=== PATIENT | male | born 1985 | race Caucasian/White ===

== ENCOUNTER 2017-12-19 14:43 | Emergency (ER) | payer MEDICAID ==
[~2017-12-19] VITALS: Ht 180.3 cm; Wt 65.9 kg
[2017-12-19] MEDS ORDERED: chlordiazePOXIDE 25mg capsule PO ONE (15:55)
[2017-12-19] MEDS ORDERED: oxymetazoline 15 ML nasal spray NS ONE (15:55)
[2017-12-19 18:14] VITALS: BP 134/92
== END 2017-12-19 18:15 | disposition home or self-care (01) ==
LOC: ER 14:44
DX: R04.0 Epistaxis (principal); I10 Essential (primary) hypertension; F17.200 Nicotine dependence, unspecified, uncomplicated; F12.10 Cannabis abuse, uncomplicated
CPT/HCPCS: 93005; 99283; 99284

== ENCOUNTER 2020-03-21 19:14 | Emergency (ER) | payer MEDICAID ==
[~2020-03-21] VITALS: Ht 177.8 cm; Wt 79.5 kg
[2020-03-21 19:55] LABS: BASOPHILS % (AUTO) 0.2 % (0-1); EOSINOPHILS % (AUTO) 0.1 % (0-6); HEMATOCRIT 44.1 % (42.0-52.0); HEMOGLOBIN 15.3 g/dl (14.0-17.9); LYMPHOCYTES # (AUTO) 0.6 X10'3 (1.1-4.8); LYMPHOCYTES % (AUTO) 5.5 % (21-51); MEAN CORPUSCULAR HEMOGLOBIN 34.3 PG (27.0-31.0); MEAN CORPUSCULAR HGB CONC 34.6 g/dL (33.0-36.5); MEAN CORPUSCULAR VOLUME 99.1 FL (78-98); MEAN PLATELET VOLUME 7.4 FL (7.4-10.4); MONOCYTES # (AUTO) 0.8 X10'3 (0-0.9); MONOCYTES % (AUTO) 7.2 % (2-12); NEUTROPHILS # (AUTO) 10.2 X10'3 (1.8-7.7); PLATELET COUNT 243 X10'3 (140-440); RED BLOOD COUNT 4.45 X10'6 (4.70-6.10); RED CELL DISTRIBUTION WIDTH 14.1 % (11.5-14.5); WHITE BLOOD COUNT 11.7 X10'3 (4.5-11.0)
[2020-03-21 20:01] LABS: CLARITY,URINE CLEAR (Clear); COLOR,URINE STRAW (Yellow); GLUCOSE, URINE NEGATIVE (Neg); KETONES,URINE 15 mg/dl (Neg); LEUKOCYTE ESTERASE ,URINE NEGATIVE (Neg); NITRITES, URINE NEGATIVE (Neg); OCCULT BLOOD,URINE TRACE-INTACT (Neg); PH,URINE 6.5 (4.8-8.0); PROTEIN,URINE NEGATIVE (Neg); UROBILINOGEN,URINE 0.2 E.U/dL (0.2-1.0)
[2020-03-21 20:02] LABS: UA COLLECTION TYPE URINAL
[2020-03-21 20:03] LABS: ALANINE AMINOTRANSFERASE 56 U/L (12-78); ALKALINE PHOSPHATASE 80 IU/L (46-116); ANION GAP 13 (8-16); ASPARTATE AMINO TRANSFERASE 47 U/L (10-37); BLOOD UREA NITROGEN 4 MG/DL (7-18); BUN/CREATININE RATIO 5.3 (5.4-32.0); CALCIUM 9.6 MG/DL (8.5-10.1); CHLORIDE 96 MMOL/L (99-107); CREATININE 0.76 MG/DL (0.60-1.10); GLUCOSE 107 MG/DL (70-104); LIPASE 918 U/L (73-393); POTASSIUM 3.7 MMOL/L (3.5-5.1); SODIUM 134 MMOL/L (135-145); TOTAL CARBON DIOXIDE 24.6 MMOL/L (24-32); TOTAL PROTEIN 8.1 G/DL (6.4-8.2); eGFR > 90 ML/MIN
[2020-03-21 20:10] LABS: BACTERIA,URINE NONE SEEN /HPF (Neg); RBC,URINE 0-2 /HPF (0-2); WBC,URINE NONE SEEN /HPF (0-4)
[2020-03-21 20:11] LABS: MUCUS STRANDS NONE SEEN /LPF (Neg); SQUAMOUS EPITHELIAL CELL,UR FEW /LPF (FEW)
[2020-03-21] MEDS ORDERED: morphine 4 MG/ML inj SYRINge IV ONE (20:15)
[2020-03-21] MEDS ORDERED: ondansetron/PF 4mg/2ml inj IV ONE (20:15)
[2020-03-21] MEDS ORDERED: normal saline 1000ML IV soln IVB ONE ×2 (20:15→20:55)
[2020-03-21] MEDS ORDERED: acetaminophen 325mg tablet PO ONE (20:45)
[2020-03-21 22:29] LABS: PARTIAL THROMBOPLASTIN TIME 31 SECONDS (22-32)
[2020-03-21 22:57] LABS: URINE AMPHETAMINE SCREEN NEGATIVE (Neg); URINE BARBITUATE SCREEN NEGATIVE (Neg); URINE BENZODIAZEPINES SCREEN NEGATIVE (Neg); URINE CANNABINOID SCREEN NEGATIVE (Neg); URINE COCAINE SCREEN NEGATIVE (Neg); URINE METHADONE SCREEN NEGATIVE (Neg); URINE OPIATE SCREEN NEGATIVE (Neg); URINE PHENCYCLIDINE SCREEN NEGATIVE (Neg)
[2020-03-22] MEDS ORDERED: morphine 10mg/ml inj. IV ONE (00:15)
[2020-03-22 01:04] VITALS: BP 178/107
[2020-03-22] MEDS ORDERED: piperacillin/tazo 3.375gm/50ml 50 ML IV ONE (01:10)
[2020-03-22] MEDS ORDERED: normal saline 1000ml 1,000 ML IV SCH (01:19)
[2020-03-22] MEDS ORDERED: LORazepam 2 mg/ml vial IV PRN (01:20)
[2020-03-22] MEDS ORDERED: magnesium Cl slow-release 64mg tablet PO PRN (01:20)
[2020-03-22] MEDS ORDERED: ondansetron/PF 4mg/2ml inj IV PRN (01:20)
[2020-03-22] MEDS ORDERED: potassium Cl 20 mEq SR tablet PO PRN ×2 (01:20)
[2020-03-22] MEDS ORDERED: morphine 2 MG/ML inj. syringe IV PRN (01:20)
[2020-03-22] MEDS ORDERED: potassium CL 10mEq/100ml bag 100 ML IV PRN ×2 (01:20)
[2020-03-22] MEDS ORDERED: acetaminophen 325mg tablet PO PRN (01:20)
[2020-03-22] MEDS ORDERED: magnesium hydroxide 30ml (MOM) UD suspension PO PRN (01:20)
[2020-03-22] MEDS ORDERED: haloperidol 5mg tablet PO PRN (01:20)
[2020-03-22] MEDS ORDERED: haloperidol lactate 5mg/ml inj IM PRN (01:20)
[2020-03-22] MEDS ORDERED: mag hydrox/Alum hydrox/simeth 30ml oral suspension PO PRN (01:20)
[2020-03-22] MEDS ORDERED: magnesium 4gm in 100ml NS 100 ML IV PRN (01:20)
[2020-03-22] MEDS ORDERED: magnesium 2GM in 50ml NS 50 ML IV PRN (01:20)
[2020-03-22] MEDS ORDERED: thiamine inj. 100 MG in normal saline 100ml IV soln 100 ML IV ONE (01:20)
[2020-03-22] MEDS ORDERED: ONDA4TAB6 PO (01:32)
[2020-03-22] MEDS ORDERED: PANT-47 PO (01:32)
[2020-03-22] MEDS ORDERED: THIA100T66 PO (01:32)
[2020-03-22] MEDS ORDERED: folic acid inj. 2 MG, thiamine inj. 100 MG, MVI, adult No.4 with vit. K 10 ML in dextro... IV SCH ×4 (02:00)
[2020-03-22] MEDS ORDERED: multivitamins, therapeutics tablet PO SCH (08:00)
[2020-03-22] MEDS ORDERED: K and/or MAG REPLACEMENT MC SCH (08:00)
[2020-03-22] MEDS ORDERED: thiamine 100mg tablet PO SCH (08:00)
[2020-03-22] MEDS ORDERED: folic acid 1mg tablet PO SCH (08:00)
[2020-03-24] MEDS ORDERED: LORazepam 1 MG tablet PO PRN (01:20)
[2020-03-24] MEDS ORDERED: LORazepam 2 mg/ml vial IV PRN (01:20)
== END 2020-03-22 01:47 | disposition left against medical advice (07) ==
LOC: ER 19:14 → ED HOLD 03-22 01:29 → UNDOADMIN 03-22 01:29 → UNDODISIN 03-22 01:40
DX: K85.20 Alcohol induced acute pancreatitis without necrosis or infection (principal); I10 Essential (primary) hypertension; F17.200 Nicotine dependence, unspecified, uncomplicated; F12.90 Cannabis use, unspecified, uncomplicated; R11.0 Nausea; R50.9 Fever, unspecified; Z79.899 Other long term (current) drug therapy
CPT/HCPCS: 36415; 74176; 76700; 80053; 80305; 80320; 81001; 82607; 83605; 83690; 84145; 85025; 85610; 85730; 87040; 96374; 96375; 96376; 99285; J2270; J2405; J7030; 96372

== ENCOUNTER 2020-06-30 21:31 | Emergency (ER) | payer MEDICAID ==
[~2020-06-30] VITALS: Ht 177.8 cm; Wt 81.8 kg
[~2020-06-30 21:31] MED LIST: ONDA4TAB6 PO; PANT-47 PO; THIA100T66 PO
[2020-06-30 22:04] VITALS: BP 138/100
[2020-06-30 22:10] LABS: GLUCOSE, URINE NEGATIVE (Neg); KETONES,URINE NEGATIVE (Neg); LEUKOCYTE ESTERASE ,URINE LARGE (Neg); NITRITES, URINE NEGATIVE (Neg); OCCULT BLOOD,URINE LARGE (Neg); PH,URINE 6.5 (4.8-8.0); PROTEIN,URINE NEGATIVE (Neg); UROBILINOGEN,URINE 0.2 E.U/dL (0.2-1.0)
[2020-06-30 22:12] LABS: COLOR,URINE STRAW (Yellow); UA COLLECTION TYPE CLN CATCH MIDSTREAM
[2020-06-30 22:13] LABS: CLARITY,URINE SLIGHTLY CLOUDY (Clear)
[2020-06-30 22:18] LABS: SQUAMOUS EPITHELIAL CELL,UR FEW /LPF (FEW); WBC,URINE TNTC /HPF (0-4)
[2020-06-30 22:19] LABS: BACTERIA,URINE 3+ /HPF (Neg); RENAL CELLS, URINE FEW /HPF
[2020-06-30 22:20] LABS: WBC CLUMPS,URINE MODERATE /HPF (NEGATIVE)
--- NOTE | 2020-06-30 22:23 | NUR ---
HE WALKED OUT
== END 2020-06-30 22:24 | disposition left against medical advice (07) ==
LOC: ER 21:32
DX: R31.9 Hematuria, unspecified (principal); Z53.21 Procedure and treatment not carried out due to patient leaving prior to being seen by health care provider
CPT/HCPCS: 81001; 87088

== ENCOUNTER 2020-07-07 13:59 | Emergency (ER) | payer MEDICAID ==
[~2020-07-07] VITALS: Ht 177.8 cm; Wt 77.3 kg
[2020-07-07 14:28] VITALS: BP 153/90
[2020-07-07] MEDS ORDERED: CefTRIAXone 250MG IM Kit w/LIDOcaine IM ONE (15:00)
[2020-07-07] MEDS ORDERED: azithromycin 250mg tablet PO ONE (15:00)
== END 2020-07-07 15:33 | disposition home or self-care (01) ==
LOC: ER 14:00
DX: A54.9 Gonococcal infection, unspecified (principal); I10 Essential (primary) hypertension; F12.90 Cannabis use, unspecified, uncomplicated; Z79.899 Other long term (current) drug therapy; Z72.89 Other problems related to lifestyle
CPT/HCPCS: 96372; 99283; J0696

== ENCOUNTER 2020-11-08 13:07 | Emergency (ER) | payer MEDICAID ==
[~2020-11-08] VITALS: Ht 177.8 cm; Wt 79.2 kg
[2020-11-08 13:12] VITALS: BP 140/102
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
--- NOTE | 2020-11-08 15:19 | NUR ---
RUPESH WAS GIVEN PT CONTACT INFORMATION FOR OFFICER
== END 2020-11-08 14:46 | disposition home or self-care (01) ==
LOC: ER 13:08
DX: M25.512 Pain in left shoulder (principal); R07.89 Other chest pain; R51.9 Headache, unspecified; V09.29XA Pedestrian injured in traffic accident involving other motor vehicles, initial encounter; Y93.01 Activity, walking, marching and hiking; Y92.89 Other specified places as the place of occurrence of the external cause; Y99.8 Other external cause status
CPT/HCPCS: 70450; 71250; 72125; 73030; 74176; 99285

== ENCOUNTER 2020-12-10 17:18 | Emergency (ER) | payer MEDICAID ==
[~2020-12-10] VITALS: Ht 177.8 cm; Wt 91.0 kg
[2020-12-10 17:51] VITALS: BP 149/95
--- NOTE | 2020-12-10 18:17 | NUR ---
PATIENT CALLED BACK TO TREATMENT AREA, NOT IN LOBBY. ATTEMPTED TO CALL PATIENT TO RETURN, MAILBOX FULL AND UNABLE TO LEAVE MESSAGE.
== END 2020-12-10 18:59 | disposition left against medical advice (07) ==
LOC: ER 17:19
DX: R10.84 Generalized abdominal pain (principal); Z53.21 Procedure and treatment not carried out due to patient leaving prior to being seen by health care provider

== ENCOUNTER 2020-12-12 15:25 | Emergency (ER) | payer MEDICAID ==
[~2020-12-12] VITALS: Ht 177.8 cm; Wt 91.0 kg
[2020-12-12 15:31] VITALS: BP 152/90
[2020-12-12] MEDS ORDERED: ibuprofen tablet 400 MG TABLET PO ONE (16:15)
[2020-12-12] MEDS ORDERED: silver sulfadiazine cream 400gm jar TP SCH (16:15)
[2020-12-12] MEDS ORDERED: SULF1TAB45 PO (16:20)
[2020-12-12] MEDS ORDERED: HYDR-3965 PO (16:20)
[2020-12-12] MEDS ORDERED: ONDA4TAB6 PO (16:20)
[2020-12-12] MEDS ORDERED: CEPH250T PO (16:20)
[2020-12-12] MEDS ORDERED: silver sulfadiazine cream 50gm TP ONE (16:30)
== END 2020-12-12 16:48 | disposition home or self-care (01) ==
LOC: ER 15:26
DX: T22.112A Burn of first degree of left forearm, initial encounter (principal); L03.114 Cellulitis of left upper limb; T31.0 Burns involving less than 10% of body surface; I10 Essential (primary) hypertension; F12.90 Cannabis use, unspecified, uncomplicated; Z72.89 Other problems related to lifestyle; Z79.899 Other long term (current) drug therapy; X08.8XXA Exposure to other specified smoke, fire and flames, initial encounter; Y93.89 Activity, other specified; Y92.89 Other specified places as the place of occurrence of the external cause; Y99.8 Other external cause status
CPT/HCPCS: 16020; 99283

== ENCOUNTER 2021-01-17 18:57 | Emergency (ER) | payer MEDICAID ==
[~2021-01-17] VITALS: Ht 177.8 cm; Wt 86.4 kg
[2021-01-17] MEDS ORDERED: ketorolac trometh. 30mg/ml inj. IM ONE (21:10)
[2021-01-17 21:42] VITALS: BP 152/98
== END 2021-01-17 21:43 | disposition home or self-care (01) ==
LOC: ER 18:58
DX: M25.512 Pain in left shoulder (principal); I10 Essential (primary) hypertension; F12.90 Cannabis use, unspecified, uncomplicated; Z72.89 Other problems related to lifestyle; Z79.899 Other long term (current) drug therapy
CPT/HCPCS: 73030; 96372; 99283; J1885

== ENCOUNTER 2021-04-09 18:54 | Emergency (ER) | payer MEDICAID ==
[~2021-04-09] VITALS: Ht 177.8 cm; Wt 90.9 kg
[2021-04-09] MEDS ORDERED: clindamycin 150mg capsule PO ONE (22:25)
[2021-04-09] MEDS ORDERED: ondansetron 4mg rapidly disintigrating tab PO ONE (22:25)
[2021-04-09] MEDS ORDERED: acetaminophen 325mg tablet PO ONE (22:25)
[2021-04-09] MEDS ORDERED: ibuprofen tablet 400 MG TABLET PO ONE (22:25)
[2021-04-09 23:05] VITALS: BP 148/106
[2021-04-09] MEDS ORDERED: CLIN150C2 PO ×2 (23:07→23:09)
== END 2021-04-09 23:27 | disposition home or self-care (01) ==
LOC: ER 18:56
DX: L03.116 Cellulitis of left lower limb (principal); M79.672 Pain in left foot; I10 Essential (primary) hypertension; F12.90 Cannabis use, unspecified, uncomplicated; Z72.89 Other problems related to lifestyle; Z79.2 Long term (current) use of antibiotics; Z79.899 Other long term (current) drug therapy
CPT/HCPCS: 73630; 99284

== ENCOUNTER 2021-11-12 07:27 | Emergency (ER) | payer MEDICAID ==
[~2021-11-12] VITALS: Ht 177.8 cm; Wt 84.0 kg
[2021-11-12 07:28] VITALS: BP 157/99
[2021-11-12] MEDS ORDERED: LIDOcaine 5% patch TP ONE (07:50)
[2021-11-12] MEDS ORDERED: acetaminophen 325mg tablet PO ONE (07:50)
[2021-11-12] MEDS ORDERED: ketorolac trometh inj. 60 MG/2 ML VIAL IM ONE (07:50)
[2021-11-12] MEDS ORDERED: ondansetron 4mg rapidly disintigrating tab PO ONE (07:50)
[2021-11-12] MEDS ORDERED: HYDROcodone/acetaminophen 5mg/325mg tablet PO ONE (07:50)
[2021-11-12] MEDS ORDERED: LIDO700A32 TOP (08:32)
[2021-11-12] MEDS ORDERED: HYDR-3965 PO (08:32)
== END 2021-11-12 08:48 | disposition home or self-care (01) ==
LOC: ER 07:27
DX: R07.81 Pleurodynia (principal); I10 Essential (primary) hypertension; F12.90 Cannabis use, unspecified, uncomplicated; Z72.89 Other problems related to lifestyle; Z79.899 Other long term (current) drug therapy
CPT/HCPCS: 71045; 96372; 99284; J1885

== ENCOUNTER 2021-11-14 01:22 | Emergency (ER) | payer MEDICAID ==
[~2021-11-14] VITALS: Ht 177.8 cm; Wt 77.0 kg
[~2021-11-14 01:22] MED LIST changes: +HYDR-3965 PO; +LIDO700A32 TOP
[2021-11-14 01:38] VITALS: BP 139/83
== END 2021-11-14 04:48 | disposition left against medical advice (07) ==
LOC: ER 01:23
DX: R07.81 Pleurodynia (principal); R05.9 Cough, unspecified; Z53.21 Procedure and treatment not carried out due to patient leaving prior to being seen by health care provider

== ENCOUNTER 2022-01-26 22:14 | Emergency (ER) | payer MEDICAID ==
[~2022-01-26] VITALS: Ht 177.8 cm; Wt 86.0 kg
[~2022-01-26 22:14] MED LIST changes: -HYDR-3965 PO
[2022-01-26 22:22] VITALS: BP 153/111
== END 2022-01-27 02:17 | disposition left against medical advice (07) ==
LOC: ER 22:14
DX: Z53.21 Procedure and treatment not carried out due to patient leaving prior to being seen by health care provider (principal)
CPT/HCPCS: 99283

== ENCOUNTER 2022-05-15 18:00 | Emergency (ER) | payer MEDICAID ==
[~2022-05-15] VITALS: Ht 177.8 cm; Wt 81.8 kg
[2022-05-15] MEDS ORDERED: gabapentin 300mg capsule PO ONE (22:25)
[2022-05-15] MEDS ORDERED: GABA400C PO (22:35)
[2022-05-15 22:48] VITALS: BP 130/90
== END 2022-05-15 22:50 | disposition home or self-care (01) ==
LOC: ER 19:19
DX: F10.20 Alcohol dependence, uncomplicated (principal); Y90.9 Presence of alcohol in blood, level not specified; I10 Essential (primary) hypertension; F12.90 Cannabis use, unspecified, uncomplicated
CPT/HCPCS: 99285

== ENCOUNTER 2022-10-05 17:44 | Emergency (ER) | payer MEDICAID ==
[~2022-10-05] VITALS: Ht 177.8 cm; Wt 86.4 kg
[~2022-10-05 17:44] MED LIST changes: +GABA400C PO
[2022-10-05 17:48] VITALS: BP 159/103
[2022-10-05] MEDS ORDERED: ketorolac tromethamine 15mg/ml inj. IM ONE (21:00)
[2022-10-05] MEDS ORDERED: sulfamethoxazole/trimethoprim DS (800/160mg) tablet PO ONE (21:00)
[2022-10-05] MEDS ORDERED: IBUP-1984 PO (21:05)
[2022-10-05] MEDS ORDERED: SULF1TAB45 PO (21:05)
== END 2022-10-05 21:45 | disposition home or self-care (01) ==
LOC: ER 17:44
DX: L03.114 Cellulitis of left upper limb (principal); I10 Essential (primary) hypertension; Z79.899 Other long term (current) drug therapy
CPT/HCPCS: 73130; 96372; 99283; J1885

== ENCOUNTER 2022-11-01 20:02 | Emergency (ER) | payer MEDICAID ==
[~2022-11-01] VITALS: Ht 177.8 cm; Wt 79.5 kg
[2022-11-01 20:10] VITALS: BP 136/86
== END 2022-11-01 20:51 | disposition left against medical advice (07) ==
LOC: ER 20:04
DX: F10.239 Alcohol dependence with withdrawal, unspecified (principal); Z53.21 Procedure and treatment not carried out due to patient leaving prior to being seen by health care provider; Y90.9 Presence of alcohol in blood, level not specified

== ENCOUNTER 2024-08-30 23:18 | Inpatient (IN) | payer MEDICAID ==
[~2024-08-30] VITALS: Ht 177.8 cm; Wt 71.4 kg
[2024-08-31] MEDS ORDERED: NALT50TA5 PO (00:27)
[2024-08-31] MEDS ORDERED: THIA100T66 PO (00:27)
[2024-08-31] MEDS ORDERED: CHLO25CA10 PO (00:27)
[2024-08-31] MEDS ORDERED: ONDA-243 PO (00:27)
[2024-08-31] MEDS ORDERED: OMEP40CA21 PO (00:27)
[2024-08-31] MEDS ORDERED: QUET-1 PO (00:27)
[2024-08-31] MEDS: QUEtiapine 25mg tablet PO STA (00:33)
[2024-08-31] MEDS: chlordiazePOXIDE 25mg capsule PO ONE (00:34)
[2024-08-31] MEDS: ondansetron 4mg rapidly disintigrating tab PO ONE (00:34)
[2024-08-31] MEDS: thiamine 100mg tablet PO ONE (00:34)
[2024-08-31] MEDS: pantoprazole 40mg Tablet.DR PO STA (00:34)
[2024-08-31 00:48] LABS: BASOPHILS % (AUTO) 0.3 % (0-1); EOSINOPHILS % (AUTO) 0.1 % (0-6); HEMATOCRIT 40.6 % (42.0-52.0); HEMOGLOBIN 13.9 g/dl (14.0-17.9); LYMPHOCYTES # (AUTO) 0.9 X10'3 (1.1-4.8); LYMPHOCYTES % (AUTO) 11.6 % (21-51); MEAN CORPUSCULAR HEMOGLOBIN 31.5 PG (27.0-31.0); MEAN CORPUSCULAR HGB CONC 34.2 g/dL (33.0-36.5); MONOCYTES # (AUTO) 1.8 X10'3 (0-0.9); MONOCYTES % (AUTO) 23.3 % (2-12); NEUTROPHILS # (AUTO) 5.1 X10'3 (1.8-7.7); NEUTROPHILS % (AUTO) 64.7 % (42-75); PLATELET COUNT 155 X10'3 (140-440); RED BLOOD COUNT 4.41 X10'6 (4.70-6.10); RED CELL DISTRIBUTION WIDTH 16.4 % (11.5-14.5); WHITE BLOOD COUNT 7.9 X10'3 (4.5-11.0)
[2024-08-31 01:00] LABS: ALANINE AMINOTRANSFERASE 112 U/L (12-78); ALBUMIN/GLOBULIN RATIO 0.6 (1.1-1.5); ALKALINE PHOSPHATASE 64 IU/L (46-116); ANION GAP 11 (8-16); ASPARTATE AMINO TRANSFERASE 197 U/L (10-37); BILIRUBIN,TOTAL 0.3 MG/DL (0.1-1.0); BLOOD UREA NITROGEN 10 MG/DL (7-18); CALCIUM 8.6 MG/DL (8.5-10.1); CHLORIDE 94 MMOL/L (99-107); CREATININE 0.77 MG/DL (0.60-1.10); GLUCOSE 102 MG/DL (70-104); SODIUM 131 MMOL/L (135-145); TOTAL CARBON DIOXIDE 25.8 MMOL/L (24-32); TOTAL PROTEIN 8.4 G/DL (6.4-8.2); eCRCL 129 ML/MIN; eGFR > 90 ML/MIN
[2024-08-31 01:12] LABS: LYMPHOCYTES % (MANUAL) 14 % (21-51); MONOCYTES % (MANUAL) 11 % (2-12); NEUTROPHILS % (MANUAL) 75 % (42-75); TOTAL CELLS COUNTED 100
[2024-08-31 01:13] LABS: LARGE PLATELETS FEW; PLATELET ESTIMATE NORMAL
[2024-08-31] MEDS: LORazepam 2 mg/ml vial IV ONE ×2 (01:23→02:06)
[2024-08-31] MEDS: normal saline 1000ML IV soln IVB ONE ×2 (01:23→02:29)
[2024-08-31 01:27] LABS: BILIRUBIN,URINE NEGATIVE (Neg); CLARITY,URINE CLEAR (Clear); COLOR,URINE YELLOW (Yellow); GLUCOSE, URINE NEGATIVE (Neg); KETONES,URINE NEGATIVE (Neg); LEUKOCYTE ESTERASE ,URINE NEGATIVE (Neg); NITRITES, URINE NEGATIVE (Neg); OCCULT BLOOD,URINE MODERATE (Neg); PH,URINE 6.5 (4.8-8.0); PROTEIN,URINE >=300 mg/dl (Neg)
[2024-08-31 01:32] LABS: UA COLLECTION TYPE CLN CATCH MIDSTREAM
[2024-08-31 01:33] LABS: BACTERIA,URINE FEW /HPF (Neg); MUCUS STRANDS FEW /LPF (Neg); SQUAMOUS EPITHELIAL CELL,UR FEW /LPF (FEW); TRANSITIONAL EPI CELLS,URINE FEW /HPF
[2024-08-31 01:34] LABS: WBC,URINE 0-4 /HPF (0-4)
[2024-08-31 01:36] LABS: URINE AMPHETAMINE SCREEN NEGATIVE (Neg); URINE BARBITUATE SCREEN NEGATIVE (Neg); URINE BENZODIAZEPINES SCREEN NEGATIVE (Neg); URINE CANNABINOID SCREEN NEGATIVE (Neg); URINE COCAINE SCREEN NEGATIVE (Neg); URINE METHADONE SCREEN NEGATIVE (Neg); URINE OPIATE SCREEN NEGATIVE (Neg); URINE PHENCYCLIDINE SCREEN NEGATIVE (Neg)
[2024-08-31] MEDS: magnesium sulf-water 2g/50mL 50 ML IV ONE (01:43)
[2024-08-31 01:48] LABS: PRO BRAIN NATRIURETIC PEPTIDE 563 PG/ML (0-125)
[2024-08-31 01:54] LABS: MAGNESIUM 1.5 MG/DL (1.5-2.4)
[2024-08-31 02:27] LABS: CREATINE KINASE 151 U/L (39-308)
[2024-08-31] MEDS: potassium CL 10mEq/100ml bag 100 ML IV SCH (02:29)
[2024-08-31] MEDS: PHENOBARBITAL IV ONE (02:45)
[2024-08-31] MEDS: NORMAL SALINE IV ONE (02:45)
[2024-08-31] MEDS ORDERED: magnesium Cl slow-release 64mg tablet PO PRN (03:25)
[2024-08-31] MEDS ORDERED: ondansetron/PF 4mg/2ml inj IV PRN (03:25)
[2024-08-31] MEDS ORDERED: magnesium hydroxide 30ml (MOM) UD suspension PO PRN (03:25)
[2024-08-31] MEDS ORDERED: mag hydrox/Alum hydrox/simeth 30ml oral suspension PO PRN (03:25)
[2024-08-31] MEDS ORDERED: haloperidol lactate 5mg/ml inj IM PRN (03:30)
[2024-08-31] MEDS: CefTRIAXone 2gm/D5W 50ml BAG 50 ML IV ONE (03:49)
[2024-08-31] MEDS: normal saline 1000ml 1,000 ML IV SCH (03:54)
[2024-08-31 03:56] LABS: APTT 30 SECONDS (22-32); PROTHROMBIN TIME 10.5 SECONDS (9.0-12.0)
[2024-08-31] MEDS: azithromycin/NS 500mg/250ml 250 ML IV STA (03:57)
[2024-08-31 04:05] LABS: HEMOGLOBIN A1C 5.4 % (4.5-6.2)
[2024-08-31] MEDS ORDERED: dextrose 50%-water 50ml dispensing syringe IV PRN ×2 (04:15)
[2024-08-31] MEDS ORDERED: glucagon, human recombinant 1mg kit SUBCUT PRN (04:15)
[2024-08-31] MEDS ORDERED: DEXTROSE 15 GM of carb/4 tabs (each vial/BOTTLE has 4 tablets) PO PRN ×2 (04:15)
[2024-08-31 04:19] LABS: ETHANOL 193 MG/DL (<10); THYROID STIMULATING HORMONE 0.93 ulU/ml (0.34-4.50)
[2024-08-31] MEDS: LORazepam 2 mg/ml vial IV PRN ×2 (05:47→07:49)
[2024-08-31] MEDS: folic acid 1mg/0.2ml inj IV SCH (07:29)
[2024-08-31] MEDS: thiamine 100mg/ml 2ml inj. IV SCH (07:29)
[2024-08-31] MEDS: pantoprazole 40 MG vial IV SCH (07:29)
[2024-08-31] MEDS: acetaminophen 325mg tablet PO PRN (07:29)
[2024-08-31] MEDS: multivitamins, therapeutics tablet PO SCH (07:29)
[2024-08-31] MEDS: docusate sod 100mg capsule PO SCH (07:30)
[2024-08-31] MEDS: enoxaparin 40mg/0.4ml syringe SUBCUT SCH (07:41)
[2024-08-31] MEDS: piperacillin/tazo 3.375gm/50ml 50 ML IV SCH (07:52)
[2024-08-31] MEDS: normal saline 1000ml 1,000 ML IV ONE ×2 (07:52→16:14)
[2024-08-31] MEDS: K and/or MAG REPLACEMENT MC SCH (08:00)
[2024-08-31 08:45] LABS: ABG BASE EXCESS -2.9 mmol/L (-2.0-3.0); ABG HCO3 20.8 mmol/L (21.0-28.0); ABG OXYGEN SATURATION 95.5 % (94.0-98.0); ABG PCO2 (T) 35.4 mmHg (35.0-48.0); ABG PH (T) 7.393 (7.350-7.450); ABG PO2 (T) 91.2 mmHg (83.0-108.0); ALLEN'S TEST Modified; FCOHb 0.9 % (0.5-1.5); FHHb 4.4 % (0.0-5.0); FLOW 2 L/min; FMetHb 0.3 % (0.0-1.5); FO2Hb 94.4 % (94.0-98.0); MODE NASAL CANNULA; PATIENT TEMPERATURE 38.6; TOTAL HEMOGLOBIN 12.7 G/dl (13.5-17.5)
[2024-08-31] MEDS ORDERED: iohexol 300mg/ml 100ml inj. ONE (08:47)
[2024-08-31] MEDS: VANCOMYCIN 1GM 200ML H20 (PEG) 200 ML IV SCH (09:23)
[2024-08-31 10:05] LABS: BASOPHILS % (AUTO) 0.3 % (0-1); EOSINOPHILS % (AUTO) 0 % (0-6); HEMATOCRIT 33.7 % (42.0-52.0); HEMOGLOBIN 11.5 g/dl (14.0-17.9); LYMPHOCYTES # (AUTO) 0.5 X10'3 (1.1-4.8); LYMPHOCYTES % (AUTO) 9.4 % (21-51); MEAN CORPUSCULAR HEMOGLOBIN 31.6 PG (27.0-31.0); MEAN CORPUSCULAR HGB CONC 34.2 g/dL (33.0-36.5); MEAN CORPUSCULAR VOLUME 92.6 FL (78-98); MEAN PLATELET VOLUME 7.7 FL (7.4-10.4); MONOCYTES % (AUTO) 17.6 % (2-12); NEUTROPHILS # (AUTO) 4.3 X10'3 (1.8-7.7); NEUTROPHILS % (AUTO) 72.7 % (42-75); PLATELET COUNT 129 X10'3 (140-440); RED BLOOD COUNT 3.64 X10'6 (4.70-6.10); RED CELL DISTRIBUTION WIDTH 16.5 % (11.5-14.5); WHITE BLOOD COUNT 5.9 X10'3 (4.5-11.0)
[2024-08-31 10:15] LABS: ALANINE AMINOTRANSFERASE 77 U/L (12-78); ALBUMIN 2.2 G/DL (3.4-5.0); ALBUMIN/GLOBULIN RATIO 0.5 (1.1-1.5); ALKALINE PHOSPHATASE 44 IU/L (46-116); ANION GAP 12 (8-16); ASPARTATE AMINO TRANSFERASE 118 U/L (10-37); BILIRUBIN,TOTAL 0.3 MG/DL (0.1-1.0); BLOOD UREA NITROGEN 6 MG/DL (7-18); CALCIUM 7.3 MG/DL (8.5-10.1); CHLORIDE 102 MMOL/L (99-107); GLUCOSE 103 MG/DL (70-104); SODIUM 135 MMOL/L (135-145); TOTAL CARBON DIOXIDE 21.4 MMOL/L (24-32); TOTAL PROTEIN 6.5 G/DL (6.4-8.2); eCRCL 165 ML/MIN; eGFR > 90 ML/MIN
[2024-08-31 10:20] LABS: POTASSIUM 2.5 MMOL/L (3.5-5.1)
[2024-08-31] MEDS: potassium Cl 40MEQ/1/2NS 520ml 520 ML IV PRN (10:30)
[2024-08-31] MEDS: metoprolol tartrate 1mg/ml inj IV SCH (15:50)
[2024-08-31] MEDS: lactulose 20gm/30ml cup PO SCH (16:19)
[2024-08-31] MEDS: nicotine 21mg patch - 24 hr TD ONE (21:18)
[2024-09-01] VITALS (8 sets, daily range): BP systolic 138–157; BP diastolic 72–101; PULSE 70–79; RESP 12–28; TEMP 97.2–98.9; O2SAT 95–97
[2024-09-01] MEDS: metoprolol tartrate 1mg/ml inj IV ONE (05:03)
[2024-09-01] MEDS: VANCOMYCIN LEVEL IV ONE (07:30)
[2024-09-01 08:35] LABS: BASOPHILS % (AUTO) 0.8 % (0-1); EOSINOPHILS % (AUTO) 0.5 % (0-6); HEMATOCRIT 36.3 % (42.0-52.0); LYMPHOCYTES # (AUTO) 0.9 X10'3 (1.1-4.8); LYMPHOCYTES % (AUTO) 21.4 % (21-51); MEAN CORPUSCULAR HEMOGLOBIN 30.8 PG (27.0-31.0); MEAN CORPUSCULAR VOLUME 93.4 FL (78-98); MEAN PLATELET VOLUME 7.9 FL (7.4-10.4); MONOCYTES # (AUTO) 1.1 X10'3 (0-0.9); MONOCYTES % (AUTO) 25.8 % (2-12); NEUTROPHILS # (AUTO) 2.3 X10'3 (1.8-7.7); NEUTROPHILS % (AUTO) 51.5 % (42-75); PLATELET COUNT 147 X10'3 (140-440); RED BLOOD COUNT 3.89 X10'6 (4.70-6.10); RED CELL DISTRIBUTION WIDTH 16.8 % (11.5-14.5); WHITE BLOOD COUNT 4.4 X10'3 (4.5-11.0)
[2024-09-01 08:44] LABS: INR 1.1 INR; PROTHROMBIN TIME 11.4 SECONDS (9.0-12.0)
[2024-09-01 08:53] LABS: ALANINE AMINOTRANSFERASE 63 U/L (12-78); ALBUMIN 2.3 G/DL (3.4-5.0); ALBUMIN/GLOBULIN RATIO 0.5 (1.1-1.5); ALKALINE PHOSPHATASE 41 IU/L (46-116); AMYLASE 79 U/L (25-115); ANION GAP 12 (8-16); ASPARTATE AMINO TRANSFERASE 78 U/L (10-37); BILIRUBIN,TOTAL 0.3 MG/DL (0.1-1.0); BLOOD UREA NITROGEN 6 MG/DL (7-18); BUN/CREATININE RATIO 10.9 (10.0-20.0); C-REACTIVE PROTEIN 6.83 MG/DL (0.0-0.5); CHLORIDE 100 MMOL/L (99-107); CHOL/HDL RATIO 3.5 (0.00-4.99); CHOLESTEROL 84 MG/DL (0-200); CREATININE 0.55 MG/DL (0.60-1.10); GLUCOSE 77 MG/DL (70-104); HDL CHOLESTEROL 24 MG/DL (35-60); LIPASE 95 U/L (16-77); MAGNESIUM 1.4 MG/DL (1.5-2.4); PHOSPHORUS 2.3 MG/DL (2.3-4.5); SODIUM 132 MMOL/L (135-145); TRIGLYCERIDES 93 MG/DL (20-135); VANCOMYCIN,TROUGH 1.7 ug/mL (10.0-20.0); eCRCL 180 ML/MIN; eGFR > 90 ML/MIN
[2024-09-01 08:55] LABS: ANISOCYTOSIS 1+; PLATELET ESTIMATE NORMAL; TOTAL CELLS COUNTED 100
[2024-09-01 08:56] LABS: BURR CELLS FEW
[2024-09-01] MEDS: potassium Cl 20 mEq SR tablet PO PRN (09:12)
[2024-09-01 09:19] LABS: POTASSIUM 2.9 MMOL/L (3.5-5.1)
[2024-09-01 09:24] LABS: LDL CHOLESTEROL 49 MG/DL (50-100)
[2024-09-01] MEDS: magnesium sulf-water 2g/50mL 50 ML IV PRN (11:02)
[2024-09-01] MEDS: magnesium sulf-water 4G/100mL 100 ML IV PRN (12:07)
[2024-09-01] MEDS: methylPREDNISolone sod succ 125mg/2ml vial IV SCH (14:51)
[2024-09-01] MEDS: LORazepam 2 mg/ml vial IV SCH (14:52)
[2024-09-01 18:27] LABS: MAGNESIUM 1.9 MG/DL (1.5-2.4); POTASSIUM 4.2 MMOL/L (3.5-5.1)
[2024-09-02] VITALS (8 sets, daily range): BP systolic 111–177; BP diastolic 59–121; PULSE 55–73; RESP 11–20; TEMP 97–98.6; O2SAT 92–100
[2024-09-02] MEDS: hydrALAZINE 20mg/ml inj. IV ONE (00:22)
[2024-09-02 08:00] LABS: LYMPHOCYTES # (AUTO) 0.4 X10'3 (1.1-4.8); MONOCYTES # (AUTO) 0.3 X10'3 (0-0.9); NEUTROPHILS # (AUTO) 1.2 X10'3 (1.8-7.7); RED CELL DISTRIBUTION WIDTH 16.6 % (11.5-14.5)
[2024-09-02 08:05] LABS: BASOPHILS % (AUTO) 0.3 % (0-1); EOSINOPHILS % (AUTO) 0.1 % (0-6); HEMATOCRIT 38.2 % (42.0-52.0); HEMOGLOBIN 12.9 g/dl (14.0-17.9); LYMPHOCYTES % (AUTO) 20.7 % (21-51); MEAN CORPUSCULAR HEMOGLOBIN 31.3 PG (27.0-31.0); MEAN CORPUSCULAR HGB CONC 33.7 g/dL (33.0-36.5); MEAN CORPUSCULAR VOLUME 92.9 FL (78-98); MEAN PLATELET VOLUME 8.3 FL (7.4-10.4); MONOCYTES % (AUTO) 16.6 % (2-12); NEUTROPHILS % (AUTO) 62.3 % (42-75); PLATELET COUNT 193 X10'3 (140-440); RED BLOOD COUNT 4.12 X10'6 (4.70-6.10); WHITE BLOOD COUNT 1.9 X10'3 (4.5-11.0)
[2024-09-02] MEDS: VANCOMYCIN LEVEL IV ONE ×2 (08:10→15:31)
[2024-09-02 08:19] LABS: INR 2.4 INR; PROTHROMBIN TIME 23.2 SECONDS (9.0-12.0)
[2024-09-02] MEDS ORDERED: hydrALAZINE 20mg/ml inj. IV PRN (08:20)
[2024-09-02 08:39] LABS: ANISOCYTOSIS 1+; PLATELET ESTIMATE NORMAL; TOTAL CELLS COUNTED 100
[2024-09-02 08:40] LABS: BURR CELLS FEW
[2024-09-02 08:53] LABS: ALANINE AMINOTRANSFERASE 53 U/L (12-78); ALBUMIN 2.2 G/DL (3.4-5.0); ALBUMIN/GLOBULIN RATIO 0.4 (1.1-1.5); ALKALINE PHOSPHATASE 42 IU/L (46-116); AMYLASE 60 U/L (25-115); ANION GAP 11 (8-16); ASPARTATE AMINO TRANSFERASE 44 U/L (10-37); BILIRUBIN,TOTAL 0.4 MG/DL (0.1-1.0); BLOOD UREA NITROGEN 8 MG/DL (7-18); BUN/CREATININE RATIO 14.3 (10.0-20.0); C-REACTIVE PROTEIN 3.61 MG/DL (0.0-0.5); CALCIUM 8.1 MG/DL (8.5-10.1); CHLORIDE 101 MMOL/L (99-107); CREATININE 0.56 MG/DL (0.60-1.10); GLUCOSE 184 MG/DL (70-104); LIPASE 55 U/L (16-77); MAGNESIUM 1.4 MG/DL (1.5-2.4); PHOSPHORUS 3.3 MG/DL (2.3-4.5); POTASSIUM 3.4 MMOL/L (3.5-5.1); SODIUM 132 MMOL/L (135-145); TOTAL CARBON DIOXIDE 19.7 MMOL/L (24-32); TOTAL PROTEIN 7.1 G/DL (6.4-8.2); VANCOMYCIN,TROUGH 19.7 ug/mL (10.0-20.0); eCRCL 177 ML/MIN; eGFR > 90 ML/MIN
[2024-09-02 09:10] LABS: HIV ANTIBODY 1&2 RAPID NON-REACTIVE (Neg)
[2024-09-02] MEDS: potassium Cl 20 mEq SR tablet PO PRN (09:12)
[2024-09-02 09:16] LABS: HBSAG SCREEN Negative (Negative); HEP B SURF AB Non Reactive (.); HEPATITIS C VIRUS ANTIBODY Non Reactive (Non Reactive)
[2024-09-02] MEDS: cloNIDine 0.1 mg tablet PO PRN (15:39)
[2024-09-02] MEDS: LORazepam 2 mg/ml vial IV SCH (21:03)
[2024-09-03] VITALS: BP 177/109; PULSE 56; RESP 17; TEMP 97.9; O2SAT 100
[2024-09-03] MEDS: VANCOmycin 1250MG/NS 250ml Bag 250 ML IV SCH (00:32)
[2024-09-03] MEDS: lisinopril 20mg tablet PO ONE (01:19)
[2024-09-03 03:30] VITALS: BP 155/75; PULSE 54; RESP 17; TEMP 97.9; O2SAT 98
[2024-09-03 06:00] VITALS: BP 151/93; PULSE 64; RESP 20; TEMP 97.2; O2SAT 95
[2024-09-03 07:37] LABS: BASOPHILS % (AUTO) 0.1 % (0-1); EOSINOPHILS % (AUTO) 0 % (0-6); HEMATOCRIT 39.8 % (42.0-52.0); HEMOGLOBIN 13.1 g/dl (14.0-17.9); LYMPHOCYTES # (AUTO) 0.4 X10'3 (1.1-4.8); LYMPHOCYTES % (AUTO) 6.2 % (21-51); MEAN CORPUSCULAR HEMOGLOBIN 30.5 PG (27.0-31.0); MEAN CORPUSCULAR VOLUME 92.4 FL (78-98); MEAN PLATELET VOLUME 8.5 FL (7.4-10.4); MONOCYTES # (AUTO) 0.8 X10'3 (0-0.9); MONOCYTES % (AUTO) 11.3 % (2-12); NEUTROPHILS # (AUTO) 5.9 X10'3 (1.8-7.7); NEUTROPHILS % (AUTO) 82.4 % (42-75); PLATELET COUNT 282 X10'3 (140-440); RED CELL DISTRIBUTION WIDTH 16.4 % (11.5-14.5); WHITE BLOOD COUNT 7.2 X10'3 (4.5-11.0)
[2024-09-03 07:47] LABS: INR 1.1 INR; PROTHROMBIN TIME 11.2 SECONDS (9.0-12.0)
[2024-09-03 08:00] VITALS: RESP 21; O2SAT 96
[2024-09-03 08:02] LABS: ALANINE AMINOTRANSFERASE 50 U/L (12-78); ALBUMIN 2.3 G/DL (3.4-5.0); ALBUMIN/GLOBULIN RATIO 0.5 (1.1-1.5); ALKALINE PHOSPHATASE 39 IU/L (46-116); AMYLASE 74 U/L (25-115); ANION GAP 8 (8-16); ASPARTATE AMINO TRANSFERASE 31 U/L (10-37); BILIRUBIN,TOTAL 0.5 MG/DL (0.1-1.0); BLOOD UREA NITROGEN 10 MG/DL (7-18); BUN/CREATININE RATIO 16.9 (10.0-20.0); C-REACTIVE PROTEIN 1.67 MG/DL (0.0-0.5); CALCIUM 8.1 MG/DL (8.5-10.1); CHLORIDE 102 MMOL/L (99-107); CREATININE 0.59 MG/DL (0.60-1.10); GLUCOSE 175 MG/DL (70-104); LIPASE 74 U/L (16-77); MAGNESIUM 1.8 MG/DL (1.5-2.4); PHOSPHORUS 2.9 MG/DL (2.3-4.5); POTASSIUM 3.6 MMOL/L (3.5-5.1); SODIUM 133 MMOL/L (135-145); TOTAL CARBON DIOXIDE 23.5 MMOL/L (24-32); TOTAL PROTEIN 7.2 G/DL (6.4-8.2); eCRCL 168 ML/MIN; eGFR > 90 ML/MIN
[2024-09-03] MEDS: lisinopril 20mg tablet PO SCH (09:16)
[2024-09-03] MEDS: LORazepam 2 mg/ml vial IV SCH (11:43)
[2024-09-03 12:30] VITALS: BP 161/106; PULSE 64; RESP 20; TEMP 97.5; O2SAT 97
[2024-09-03] MEDS ORDERED: AZIT500T9 PO (12:48)
[2024-09-03] MEDS ORDERED: LISI20TA28 PO (12:48)
[2024-09-03] MEDS ORDERED: METH4TAB81 PO (12:48)
[2024-09-03] MEDS ORDERED: MULT-1085 PO (12:49)
[2024-09-03] MEDS ORDERED: FOLI0.4T14 PO (12:49)
[2024-09-03] MEDS ORDERED: THIA50TA10 PO (12:49)
[2024-09-03] MEDS ORDERED: CIPR-259 PO (14:40)
[2024-09-03] MEDS ORDERED: METR-159 PO (14:40)
[2024-09-04] MEDS ORDERED: LORazepam 2 mg/ml vial IV SCH (21:00)
== END 2024-09-03 15:37 | disposition home or self-care (01) | DRG 720 ==
LOC: ER 23:19 → ED HOLD 08-31 03:12 → PCU 3S 09-01 03:45
PROVIDERS: ADMIT Internal Medicine Pulmonary Disease; ATTEND Nurse Practitioner Family
PROC: BW251ZZ Computerized Tomography (CT Scan) of Chest, Abdomen and Pelvis using Low Osmolar Contrast (ICD-10-PCS; principal; 2024-08-31)
DX: A41.9 Sepsis, unspecified organism (principal); F10.231 Alcohol dependence with withdrawal delirium; K85.90 Acute pancreatitis without necrosis or infection, unspecified; J18.9 Pneumonia, unspecified organism; E87.1 Hypo-osmolality and hyponatremia; K70.10 Alcoholic hepatitis without ascites; E87.6 Hypokalemia; K52.9 Noninfective gastroenteritis and colitis, unspecified; R74.01 Elevation of levels of liver transaminase levels; I10 Essential (primary) hypertension; F10.229 Alcohol dependence with intoxication, unspecified; F14.90 Cocaine use, unspecified, uncomplicated; F15.90 Other stimulant use, unspecified, uncomplicated; Z79.899 Other long term (current) drug therapy
CPT/HCPCS: 36415; 36600; 71045; 74178; 76700; 80053; 80061; 80202; 80305; 80320; 81001; 82140; 82150; 82550; 82803; 82948; 83036; 83605; 83690; 83735; 83880; 84100; 84132; 84145; 84443; 84484; 85007; 85018; 85025; 85610; 85730; 86140; 86703; 86706; 86803; 87040; 87340; 87522; 93005; 93306; 97161; 97530; 97535; 99291; 99292; A4615; A6250; A6590; G0378; J0360; J0456; J0696; J1650; J2060; J2470; J2543; J2560; J2919; J3370; J3372; J3411; J3475; J3480; J3490; J7030; J7040; J7050; Q9967

== ENCOUNTER 2024-10-09 17:59 | Emergency (ER) | payer MEDICAID ==
[~2024-10-09] VITALS: Ht 175.3 cm; Wt 72.9 kg
[~2024-10-09 17:59] MED LIST changes: +FOLI0.4T14 CORPAK; +FOLI0.4T14 PO; -GABA400C PO; -LIDO700A32 TOP; +LISI20TA28 PO; +METH4TAB81 PO; +MULT-1085 PO; +MULT-227 PO; -ONDA4TAB6 PO; -PANT-47 PO; -THIA100T66 PO; +THIA50TA10 PO
[2024-10-09 19:43] VITALS: BP 125/86; PULSE 104; RESP 18; TEMP 99.2; O2SAT 97
== END 2024-10-09 21:01 | disposition home or self-care (01) ==
LOC: ER 18:00
DX: L72.0 Epidermal cyst (principal); I10 Essential (primary) hypertension; F12.90 Cannabis use, unspecified, uncomplicated; Z79.899 Other long term (current) drug therapy
CPT/HCPCS: 99281